=== PATIENT | female | born 1985 | race Caucasian/White ===

== ENCOUNTER 2021-08-27 12:31 | Emergency (ER) | payer OTHER ==
[~2021-08-27] VITALS: Ht 162.6 cm; Wt 122.9 kg
[2021-08-27] MEDS ORDERED: PRENATA CHEWAB1 EACH (13:08)
[2021-08-27] MEDS ORDERED: PEPCID AC20 MG (13:08)
[2021-08-27] MEDS ORDERED: LOSARTAN POTASS25 MG PO (13:09)
== END 2021-08-28 14:12 | disposition home or self-care (01) ==
LOC: ER 12:31
DX: O99.612 Diseases of the digestive system complicating pregnancy, second trimester (principal); K92.89 Other specified diseases of the digestive system; Z3A.19 19 weeks gestation of pregnancy; R10.84 Generalized abdominal pain
CPT/HCPCS: 72195; 74181

== ENCOUNTER 2021-12-18 11:23 | Outpatient (CLI) | payer OTHER ==
[~2021-12-18 11:23] MED LIST: LOSARTAN POTASS25 MG PO; PEPCID AC20 MG; PRENATA CHEWAB1 EACH
== END 2021-12-18 12:24 | disposition home or self-care (01) ==
LOC: NST 11:23
PROVIDERS: ATTEND Obstetrics & Gynecology Gynecology
DX: Z34.83 Encounter for supervision of other normal pregnancy, third trimester (principal)

== ENCOUNTER 2022-01-01 10:48 | Outpatient (CLI) | payer OTHER | END 2022-01-01 11:48 | disposition home or self-care (01) | LOC: NST 10:48 | PROVIDERS: ATTEND Specialist | DX: Z34.83 Encounter for supervision of other normal pregnancy, third trimester (principal) ==

== ENCOUNTER 2022-01-05 10:15 | Inpatient (IN) | payer OTHER ==
[~2022-01-05] VITALS: Ht 162.6 cm; Wt 137.0 kg
[2022-01-08] MEDS ORDERED: [UNRECOGNIZED DRUG - OTHER] PO (10:18)
[2022-01-14] MEDS ORDERED: LABETALOL 21 MG/1 ML PO (07:05)
[2022-01-14] MEDS ORDERED: FAMOTIDINE20 MG (13:27)
[2022-01-14] MEDS ORDERED: INTEGRA F CAPS1 EAC1 (13:27)
[2022-01-14] MEDS ORDERED: INTEGRA PLUS C1 EACH (13:27)
[2022-01-14] MEDS ORDERED: LABETALOL HCL200 MG (13:27)
== END 2022-01-16 12:44 | disposition home or self-care (01) | DRG 788 ==
LOC: EDSTATUS 01-08 08:45 → O/R 01-14 06:33 → OB/GYN 01-14 06:33 → SURG 01-14 08:45 → OB/GYN 01-14 08:45
PROVIDERS: ADMIT Obstetrics & Gynecology Maternal & Fetal Medicine; ATTEND Obstetrics & Gynecology Maternal & Fetal Medicine
PROC: 4A1HXCZ Monitoring of Products of Conception, Cardiac Rate, External Approach (ICD-10-PCS; 2022-01-14)
PROC: 10D00Z1 Extraction of Products of Conception, Low, Open Approach (ICD-10-PCS; principal; 2022-01-14 14:30)
DX: O34.211 Maternal care for low transverse scar from previous cesarean delivery (principal); Z3A.39 39 weeks gestation of pregnancy; Z37.0 Single live birth; Z20.822 Contact with and (suspected) exposure to COVID-19

== ENCOUNTER 2022-01-08 14:21 | Outpatient (CLI) | payer OTHER ==
[~2022-01-08 14:21] MED LIST changes: +[UNRECOGNIZED DRUG - OTHER] PO
== END 2022-01-08 15:35 | disposition home or self-care (01) ==
LOC: NST 14:21
PROVIDERS: ATTEND Obstetrics & Gynecology
DX: Z34.83 Encounter for supervision of other normal pregnancy, third trimester (principal)

== ENCOUNTER 2025-03-01 16:48 | Inpatient (IN) | payer OTHER ==
[~2025-03-01] VITALS: Ht 162.6 cm; Wt 95.3 kg
[~2025-03-01 16:48] MED LIST changes: +FAMOTIDINE20 MG; +INTEGRA F CAPS1 EAC1; +INTEGRA PLUS C1 EACH; +INTESTINEX680 M1 PO; +LABETALOL 21 MG/1 ML PO; +LABETALOL HCL200 MG; +PEPCID AC20 MG PO
[2025-03-01] MEDS ORDERED: OMEPRAZOLE MAGN20 MG PO (16:56)
[2025-03-01] MEDS ORDERED: ONDANSETRON HCL 2 MG/ML VIAL IV ONE (17:30)
[2025-03-01] MEDS ORDERED: FAMOtidine 10 MG/ML (4ML VIAL) IV ONE (17:30)
[2025-03-01] MEDS ORDERED: MORPHINE SULFATE 4 MG/ML CARTRIDGE IV PRN (17:30)
[2025-03-01] MEDS ORDERED: 0.9 % SODIUM CHLORIDE 1,000 ML IV ONE (17:30)
[2025-03-01 17:47] LABS: BASO % 0.1 % (0.1-1.2); EOS # 0.07 (0.04-0.54); EOS % 0.9 % (0.7-7.0); LYMPH # 0.81 (1.18-3.74); LYMPH % 10.1 % (19.3-53.1); MEAN PLATELET VOLUME 9.50 fl (9.4-12.4); MONO # 0.58 (0.24-0.82); MONO % 7.2 % (4.7-12.5); NEUT # 6.56 (1.56-6.13); NEUT % 81.5 % (34.0-71.1); RED CELL DISTRIBUTION WIDTH 14.1 % (11.6-14.4)
[2025-03-01 18:06] LABS: INR 1.09
[2025-03-01 18:37] LABS: ALT/SGPT 13 U/L (12-78); AST/SGOT 9 U/L (15-37); BILIRUBIN TOTAL 0.69 mg/dL (0.3-1.2); BILIRUBIN,CONJUGATED 0.17 mg/dL (0.0-0.2); BUN CREA RATIO 19 (7.0-25.0); CREATININE SERUM 0.70 mg/dL (0.55-1.02); GFR 93.65; GLOBULINA 5.8 G/DL (2.4-3.5); GLUCOSE FASTING 102 mg/dL (65-100); OSMOLALITY SERUM 278 MOSM/KG (275-295)
[2025-03-01 18:49] LABS: HCG QUANTITATIVE < 1 mUI/mL (1-3)
[2025-03-02] MEDS ORDERED: CIPROFLOXACIN IN 5 % DEXTROSE 200 ML IV SCH (00:31)
[2025-03-02 04:49] LABS: URINE APPEARANCE Clear; URINE BILIRRUBIN Negative (NEGATIVE); URINE BLOOD Large; URINE COLOR Yellow; URINE GLUCOSE Negative (NEGATIVE); URINE LEUKOCYTE Negative; URINE NITRATE Negative; URINE UROBILINOGEN 1.0 E.U./dl
[2025-03-02 04:53] LABS: URINE BACTERIA 809.9 uL (0.0-1933); URINE EPITHELIAL CELLS 15.0 uL (0.0-38.8); URINE RBC 679.7 uL (0.0-20.8); URINE WBC 8.9 uL (0.0-23.2)
[2025-03-02 05:14] LABS: URINE CAST 0.29 uL (0.0-1.40); URINE KETONE 40 (NEGATIVE); URINE PROTEIN 100 (NEGATIVE)
[2025-03-02] MEDS ORDERED: FAMOTIDINE/PF 20 MG in 0.9 % SODIUM CHLORIDE 8 ML IV PUSH SCH (10:45)
[2025-03-02] MEDS ORDERED: ONDANSETRON HCL 4 MG in 0.9 % SODIUM CHLORIDE 50 ML IV PRN (10:45)
[2025-03-02] MEDS ORDERED: RINGERS SOLUTION,LACTATED 1,000 ML IV SCH (10:45)
[2025-03-02] MEDS ORDERED: ENOXAPARIN SODIUM 40 MG/0.4 ML SYRINGE SUBCUTANEO SCH (11:09)
[2025-03-02 14:11] VITALS: BP 135/87
[2025-03-02 20:58] VITALS: BP 150/105; O2SAT 98
[2025-03-03 03:15] VITALS: BP 158/88; O2SAT 98
[2025-03-03 09:00] VITALS: BP 140/92; O2SAT 99
[2025-03-03 17:01] VITALS: BP 153/95
[2025-03-03] MEDS ORDERED: hydrALAZINE HCL 20 MG VIAL IV PRN (22:00)
[2025-03-03] MEDS ORDERED: KETOROLAC TROMETHAMINE 30 MG VIAL IV PRN (22:00)
[2025-03-04 03:29] VITALS: BP 153/85; O2SAT 96
[2025-03-04 08:04] LABS: BASO % 0.1 % (0.1-1.2); EOS # 0.12 (0.04-0.54); EOS % 1.8 % (0.7-7.0); LYMPH # 1.29 (1.18-3.74); LYMPH % 18.9 % (19.3-53.1); MEAN PLATELET VOLUME 9.90 fl (9.4-12.4); MONO # 0.64 (0.24-0.82); MONO % 9.4 % (4.7-12.5); NEUT # 4.73 (1.56-6.13); NEUT % 69.4 % (34.0-71.1); RED CELL DISTRIBUTION WIDTH 14.1 % (11.6-14.4)
[2025-03-04 08:35] LABS: ALT/SGPT 8.0 U/L (12-78); AST/SGOT 8.0 U/L (15-37); BILIRUBIN TOTAL 0.58 mg/dL (0.3-1.2); BUN CREA RATIO 23.0 (7.0-25.0); CREATININE SERUM 0.39 mg/dL (0.55-1.02); GFR 183.93; GLOBULINA 3.9 G/DL (2.4-3.5); GLUCOSE FASTING 71.0 mg/dL (65-100); OSMOLALITY SERUM 277.0 MOSM/KG (275-295)
[2025-03-04 09:10] LABS: ERYTHROCYTE SEDIMENTATION RATE > 130 mm/hr (0-20)
[2025-03-04 11:15] VITALS: BP 138/93; O2SAT 98
[2025-03-04] MEDS ORDERED: LORazepam 2 MG/ML VIAL IV PRN (14:15)
[2025-03-04] MEDS ORDERED: SOD FERRIC GLUC COMPLX/SUCROSE 62.5 MG in 0.9 % SODIUM CHLORIDE 50 ML IV SCH (17:00)
[2025-03-04 18:10] VITALS: BP 158/100
[2025-03-04 19:37] LABS: BASO % 0.2 % (0.1-1.2); EOS # 0.10 (0.04-0.54); EOS % 1.2 % (0.7-7.0); LYMPH # 1.16 (1.18-3.74); LYMPH % 13.5 % (19.3-53.1); MEAN PLATELET VOLUME 10.30 fl (9.4-12.4); MONO # 0.62 (0.24-0.82); MONO % 7.2 % (4.7-12.5); NEUT # 6.66 (1.56-6.13); NEUT % 77.7 % (34.0-71.1); RED CELL DISTRIBUTION WIDTH 14.1 % (11.6-14.4)
[2025-03-05 01:12] VITALS: BP 153/84; O2SAT 98
[2025-03-05 09:34] VITALS: BP 156/98; O2SAT 98
[2025-03-05 22:08] VITALS: BP 159/102
[2025-03-06 03:36] VITALS: BP 151/95; O2SAT 97
[2025-03-06 09:48] VITALS: BP 156/106; O2SAT 96
[2025-03-06] MEDS ORDERED: PANTOPRAZOLE SODIUM 40 MG/VIAL VIAL IV SCH (16:15)
[2025-03-06] MEDS ORDERED: PANTOPRAZOLE SODIUM 80 MG in 0.9 % SODIUM CHLORIDE 100 ML IV SCH (16:45)
[2025-03-06] MEDS ORDERED: DIATRIZOATE MEGLUMINE, SODIUM 30 ML BOTTLE PO STA (17:35)
[2025-03-06 18:38] VITALS: BP 147/90; O2SAT 99
[2025-03-07 02:15] VITALS: BP 150/102; O2SAT 97
[2025-03-07 08:32] VITALS: BP 145/99; O2SAT 98
[2025-03-07 15:09] LABS: BUN CREA RATIO 25.0 (7.0-25.0); CHOL HDL RATIO 3.9 (0-5.0); CREATININE SERUM 0.32 mg/dL (0.55-1.02); GFR 231.1; GLUCOSE FASTING 76.0 mg/dL (65-100); HDL 32.0 mg/dl (40-60); LDL 79.0 mg/dl (0-130); OSMOLALITY SERUM 271.0 MOSM/KG (275-295); VLDL 14.0 (0-39)
[2025-03-07] MEDS ORDERED: AA 2.36%/D6.8W/FAT/E-LYTES NO9 1,440 ML IV SCH (17:00)
[2025-03-07] MEDS ORDERED: HYOSCYAMINE SULFATE 0.125 MG TAB.SUBL SL SCH (17:00)
[2025-03-07 17:37] VITALS: BP 157/100; O2SAT 99
[2025-03-08 03:25] VITALS: BP 148/90; O2SAT 95
[2025-03-08] MEDS ORDERED: MEROPENEM 500 MG/VIAL VIAL IV STA (09:14)
[2025-03-08] MEDS ORDERED: LINEZOLID IN DEXTROSE 5% 600 MG/300 ML PIGGYBAG IV STA (09:14)
[2025-03-08] MEDS ORDERED: FLUCONAZOLE IN NACL,ISO-OSM 200 MG/100 ML PIGGYBAG IV STA (09:15)
[2025-03-08] MEDS ORDERED: POTASSIUM CHLORIDE IN WATER 100 ML IV NR (11:00)
[2025-03-08] MEDS ORDERED: MEROPENEM 500 MG/VIAL VIAL IV SCH (14:00)
[2025-03-08 17:27] VITALS: BP 161/107; O2SAT 100
[2025-03-08] MEDS ORDERED: LINEZOLID IN DEXTROSE 5% 600 MG/300 ML PIGGYBAG IV SCH (21:00)
[2025-03-09 03:18] VITALS: BP 131/90; O2SAT 95
[2025-03-09 06:20] LABS: BASO % 0.2 % (0.1-1.2); EOS # 0.01 (0.04-0.54); EOS % 0.2 % (0.7-7.0); LYMPH # 0.73 (1.18-3.74); LYMPH % 12.4 % (19.3-53.1); MEAN PLATELET VOLUME 10.30 fl (9.4-12.4); MONO # 0.48 (0.24-0.82); MONO % 8.1 % (4.7-12.5); NEUT # 4.65 (1.56-6.13); NEUT % 78.8 % (34.0-71.1); RED CELL DISTRIBUTION WIDTH 14.5 % (11.6-14.4)
[2025-03-09 06:45] LABS: ALT/SGPT 17.0 U/L (12-78); AST/SGOT 30.0 U/L (15-37); BILIRUBIN TOTAL 0.31 mg/dL (0.3-1.2); BUN CREA RATIO 12.0 (7.0-25.0); CREATININE SERUM 0.5 mg/dL (0.55-1.02); GFR 138.08; GLOBULINA 4.0 G/DL (2.4-3.5); GLUCOSE FASTING 107.0 mg/dL (65-100); OSMOLALITY SERUM 270.0 MOSM/KG (275-295)
[2025-03-09 06:52] LABS: ERYTHROCYTE SEDIMENTATION RATE 109 mm/hr (0-20)
[2025-03-09] MEDS ORDERED: FLUCONAZOLE IN NACL,ISO-OSM 200 MG/100 ML PIGGYBAG IV SCH (09:00)
[2025-03-09 09:56] VITALS: BP 127/89; O2SAT 97
[2025-03-09 18:30] VITALS: BP 144/105; O2SAT 99
[2025-03-10 02:12] VITALS: BP 146/90; O2SAT 97
[2025-03-10 08:29] VITALS: BP 136/91; O2SAT 95
[2025-03-10] MEDS ORDERED: FAMOTIDINE/PF 20 MG/2 ML VIAL ONE (13:43)
[2025-03-10 18:40] VITALS: BP 136/94
[2025-03-10 18:45] VITALS: BP 136/94
[2025-03-11 02:04] VITALS: BP 150/90; O2SAT 98
[2025-03-11 09:53] VITALS: BP 148/103; O2SAT 95
[2025-03-11 18:29] VITALS: BP 139/98
[2025-03-11 18:32] VITALS: BP 139/98
[2025-03-11] MEDS ORDERED: MORPHINE SULFATE 4 MG/ML CARTRIDGE IV PRN (22:30)
[2025-03-12 03:10] VITALS: BP 132/84; O2SAT 95
[2025-03-12 06:13] LABS: BASO % 0.3 % (0.1-1.2); EOS # 0.18 (0.04-0.54); EOS % 2.5 % (0.7-7.0); LYMPH # 1.50 (1.18-3.74); LYMPH % 20.6 % (19.3-53.1); MEAN PLATELET VOLUME 10.70 fl (9.4-12.4); MONO # 0.73 (0.24-0.82); MONO % 10.0 % (4.7-12.5); NEUT # 4.81 (1.56-6.13); NEUT % 66.2 % (34.0-71.1); RED CELL DISTRIBUTION WIDTH 15.1 % (11.6-14.4)
[2025-03-12 06:46] LABS: ALT/SGPT 14.0 U/L (12-78); AST/SGOT 18.0 U/L (15-37); BILIRUBIN TOTAL 0.24 mg/dL (0.3-1.2); BUN CREA RATIO 8.0 (7.0-25.0); CREATININE SERUM 0.4 mg/dL (0.55-1.02); GFR 178.63; GLOBULINA 4.3 G/DL (2.4-3.5); GLUCOSE FASTING 91.0 mg/dL (65-100); OSMOLALITY SERUM 277.0 MOSM/KG (275-295)
[2025-03-12 09:24] VITALS: BP 153/105; O2SAT 97
[2025-03-12] MEDS ORDERED: ONDANSETRON HCL 4 MG in DEXTROSE 5 % IN WATER 50 ML IV SCH (17:00)
[2025-03-12 17:23] LABS: INR 1.09
[2025-03-12 17:35] LABS: ALT/SGPT 16 U/L (12-78); AST/SGOT 17 U/L (15-37); BILIRUBIN TOTAL 0.29 mg/dL (0.3-1.2); BILIRUBIN,CONJUGATED < 0.10 mg/dL (0.0-0.2); CHOL HDL RATIO 4.3 (0-5.0); HDL 22 mg/dl (40-60); LDL 47 mg/dl (0-130); VLDL 24 (0-39)
[2025-03-12 18:40] VITALS: BP 151/94
[2025-03-13 03:03] VITALS: BP 131/85; O2SAT 96
[2025-03-13] MEDS ORDERED: DIATRIZOATE MEGLUMINE, SODIUM 30 ML BOTTLE PO NR (09:15)
[2025-03-13 09:38] VITALS: BP 135/86; O2SAT 95
[2025-03-13] MEDS ORDERED: ONDANSETRON HCL 2 MG/ML VIAL ONE (16:29)
[2025-03-13 18:58] VITALS: BP 160/117; O2SAT 97
[2025-03-14 02:59] VITALS: BP 130/84; O2SAT 98
[2025-03-14] MEDS ORDERED: ONDANSETRON HCL 2 MG/ML VIAL ONE (16:27)
[2025-03-14 17:00] VITALS: BP 146/108; O2SAT 98
[2025-03-14] MEDS ORDERED: AA 3.31 %/D9.8W/FAT/E-LYTES 10 2,053 ML IV SCH (17:00)
[2025-03-14] MEDS ORDERED: fentaNYL CITRATE 50 MCG/ML AMPUL IV PUSH ONE ×2 (18:00→19:15)
[2025-03-14] MEDS ORDERED: MIDAZOLAM HCL 2 MG/2 ML VIAL IV PUSH ONE (18:00)
[2025-03-15 02:03] VITALS: BP 135/92; O2SAT 96
[2025-03-15] MEDS ORDERED: ONDANSETRON HCL 2 MG/ML VIAL ONE ×2 (07:57→15:59)
[2025-03-15 09:21] VITALS: BP 172/98
[2025-03-15] MEDS ORDERED: SUCRALFATE 1 G TABLET PO NR (10:30)
[2025-03-15] MEDS ORDERED: PANTOPRAZOLE SODIUM 40 MG/VIAL VIAL IV NR (10:30)
[2025-03-15] MEDS ORDERED: SIMETHICONE 125 MG CAPSULE PO SCH (17:00)
[2025-03-15] MEDS ORDERED: SUCRALFATE 1 G TABLET PO SCH (17:00)
[2025-03-15] MEDS ORDERED: PANTOPRAZOLE SODIUM 40 MG/VIAL VIAL IV SCH (21:00)
[2025-03-15 21:26] VITALS: BP 131/89
[2025-03-15] MEDS ORDERED: SUGAMMADEX SODIUM 200 MG/2 ML VIAL IV ONE (21:42)
[2025-03-15 22:37] LABS: BASO % 0.6 % (0.1-1.2); EOS # 0.30 (0.04-0.54); EOS % 3.9 % (0.7-7.0); LYMPH # 2.12 (1.18-3.74); LYMPH % 27.5 % (19.3-53.1); MEAN PLATELET VOLUME 9.50 fl (9.4-12.4); MONO # 0.90 (0.24-0.82); MONO % 11.7 % (4.7-12.5); NEUT # 4.20 (1.56-6.13); NEUT % 54.4 % (34.0-71.1); RED CELL DISTRIBUTION WIDTH 15.1 % (11.6-14.4)
[2025-03-15] MEDS ORDERED: hydrALAZINE HCL 20 MG VIAL IV ONE (23:30)
[2025-03-16 06:16] LABS: BASO % 0.6 % (0.1-1.2); EOS # 0.02 (0.04-0.54); EOS % 0.1 % (0.7-7.0); LYMPH # 0.72 (1.18-3.74); LYMPH % 4.0 % (19.3-53.1); MEAN PLATELET VOLUME 9.60 fl (9.4-12.4); MONO # 1.38 (0.24-0.82); MONO % 7.6 % (4.7-12.5); NEUT # 15.81 (1.56-6.13); NEUT % 86.9 % (34.0-71.1); RED CELL DISTRIBUTION WIDTH 15.1 % (11.6-14.4)
[2025-03-16 06:51] LABS: ERYTHROCYTE SEDIMENTATION RATE > 130 mm/hr (0-20); INR 1.08
[2025-03-16 07:02] LABS: ALT/SGPT 20.0 U/L (12-78); AST/SGOT 29.0 U/L (15-37); BILIRUBIN TOTAL 0.64 mg/dL (0.3-1.2); BUN CREA RATIO 16.0 (7.0-25.0); CREATININE SERUM 0.51 mg/dL (0.55-1.02); GFR 134.96; GLOBULINA 4.5 G/DL (2.4-3.5); GLUCOSE FASTING 167.0 mg/dL (65-100); OSMOLALITY SERUM 269.0 MOSM/KG (275-295)
[2025-03-16] MEDS ORDERED: PANTOPRAZOLE SODIUM 40 MG/VIAL VIAL ONE (08:28)
[2025-03-16] MEDS ORDERED: HYOSCYAMINE SULFATE 0.125 MG TAB.SUBL ONE (08:28)
[2025-03-16] MEDS ORDERED: ONDANSETRON HCL 2 MG/ML VIAL ONE (08:49)
[2025-03-16] MEDS ORDERED: MORPHINE SULFATE 4 MG/ML CARTRIDGE IV ONE (09:30)
[2025-03-16] MEDS ORDERED: LABETALOL HCL 100 MG/20 ML ML IV PRN (11:15)
[2025-03-16] MEDS ORDERED: LABETALOL HCL 100 MG/20 ML ML ONE ×5 (11:20→11:46)
[2025-03-16 16:30] VITALS: BP 130/86; O2SAT 96
[2025-03-16 16:57] VITALS: O2SAT 97
[2025-03-16] MEDS ORDERED: AA 5 %/CALCIUM/LYTES/DEXT 20 % 2,000 ML CENTRAL SCH ×2 (17:00)
[2025-03-16] MEDS ORDERED: ENOXAPARIN SODIUM 40 MG/0.4 ML SYRINGE SUBCUTANEO SCH (17:00)
[2025-03-16] MEDS ORDERED: FAT EMULSIONS 250 ML IV SCH (21:00)
[2025-03-16 21:09] VITALS: O2SAT 99
[2025-03-17] VITALS (9 sets, daily range): BP systolic 136–142; BP diastolic 76–98; O2SAT 97–99
[2025-03-17] MEDS ORDERED: ENOXAPARIN SODIUM 40 MG/0.4 ML SYRINGE SUBCUTANEO SCH ×2 (09:00→17:00)
[2025-03-17] MEDS ORDERED: ENALAPRILAT DIHYDRATE 1.25 MG/ML VIAL IV ONE (19:30)
[2025-03-18] VITALS (9 sets, daily range): BP systolic 123–131; BP diastolic 82–88; O2SAT 90–100
[2025-03-18 08:41] LABS: BUN CREA RATIO 30.0 (7.0-25.0); CREATININE SERUM 0.33 mg/dL (0.55-1.02); FREE TRIODOTIRONINE 1.81 pg/ml (2.18-3.98); GLUCOSE FASTING 111.0 mg/dL (65-100); OSMOLALITY SERUM 275.0 MOSM/KG (275-295); T4 TOTAL 8.0 UG/DL (4.8-13.9)
[2025-03-18 08:43] LABS: TSH 5.54 uIU/mL (0.358-3.74)
[2025-03-18] MEDS ORDERED: MORPHINE SULFATE 4 MG/ML VIAL IV PRN (12:56)
[2025-03-18 13:01] LABS: BASO % 0.3 % (0.1-1.2); EOS # 0.33 (0.04-0.54); EOS % 2.7 % (0.7-7.0); LYMPH # 1.21 (1.18-3.74); LYMPH % 9.9 % (19.3-53.1); MEAN PLATELET VOLUME 9.50 fl (9.4-12.4); MONO # 1.30 (0.24-0.82); MONO % 10.6 % (4.7-12.5); NEUT # 9.20 (1.56-6.13); NEUT % 75.3 % (34.0-71.1); RED CELL DISTRIBUTION WIDTH 15.4 % (11.6-14.4)
[2025-03-19] VITALS (9 sets, daily range): BP systolic 133–146; BP diastolic 77–92; O2SAT 97–100
[2025-03-19 06:16] LABS: BASO % 0.4 % (0.1-1.2); EOS # 0.35 (0.04-0.54); EOS % 4.2 % (0.7-7.0); LYMPH # 1.11 (1.18-3.74); LYMPH % 13.3 % (19.3-53.1); MEAN PLATELET VOLUME 9.80 fl (9.4-12.4); MONO # 0.76 (0.24-0.82); MONO % 9.1 % (4.7-12.5); NEUT # 5.97 (1.56-6.13); NEUT % 71.8 % (34.0-71.1); RED CELL DISTRIBUTION WIDTH 15.3 % (11.6-14.4)
[2025-03-19 06:44] LABS: INR 1.05
[2025-03-19 07:25] LABS: ALT/SGPT 11.0 U/L (12-78); AST/SGOT 10.0 U/L (15-37); BILIRUBIN TOTAL 0.64 mg/dL (0.3-1.2); BILIRUBIN,CONJUGATED 0.18 mg/dL (0.0-0.2); BUN CREA RATIO 26.0 (7.0-25.0); CHOL HDL RATIO 7.0 (0-5.0); CREATININE SERUM 0.38 mg/dL (0.55-1.02); GFR 189.53; GLOBULINA 3.9 G/DL (2.4-3.5); GLUCOSE FASTING 115.0 mg/dL (65-100); LDL 51.0 mg/dl (0-130); OSMOLALITY SERUM 276.0 MOSM/KG (275-295); VLDL 27.0 (0-39)
[2025-03-19 07:27] LABS: HDL 13.0 mg/dl (40-60)
[2025-03-19 10:14] LABS: UREA CLEARANCE 70.5 ML/MIN
[2025-03-20 00:50] VITALS: BP 131/78; O2SAT 98
[2025-03-20 08:00] VITALS: BP 145/90; O2SAT 98
[2025-03-20 14:20] VITALS: BP 159/106
[2025-03-20 16:09] VITALS: O2SAT 98
[2025-03-20 16:29] VITALS: BP 137/89; O2SAT 96
[2025-03-20 17:12] LABS: BASO % 0.1 % (0.1-1.2); EOS # 0.23 (0.04-0.54); EOS % 2.9 % (0.7-7.0); LYMPH # 0.91 (1.18-3.74); LYMPH % 11.3 % (19.3-53.1); MEAN PLATELET VOLUME 9.60 fl (9.4-12.4); MONO # 0.75 (0.24-0.82); MONO % 9.3 % (4.7-12.5); NEUT # 6.04 (1.56-6.13); NEUT % 75.3 % (34.0-71.1); RED CELL DISTRIBUTION WIDTH 14.8 % (11.6-14.4)
[2025-03-21] VITALS: BP 134/89; O2SAT 96
[2025-03-21 00:12] VITALS: O2SAT 98
[2025-03-21 08:00] VITALS: BP 145/99; O2SAT 97
[2025-03-21 11:51] VITALS: O2SAT 100
[2025-03-21 16:00] VITALS: BP 137/98; O2SAT 96
[2025-03-22] VITALS (9 sets, daily range): BP systolic 131–149; BP diastolic 86–107; O2SAT 76–98
[2025-03-22] MEDS ORDERED: METOPROLOL SUCCINATE 25 MG TAB.SR.24H PO STA (22:30)
[2025-03-22] MEDS ORDERED: METOPROLOL SUCCINATE 25 MG TAB.SR.24H PO SCH (22:31)
[2025-03-22] MEDS ORDERED: ACETAMINOPHEN 500 MG GEL..CAP PO STA (22:32)
[2025-03-22] MEDS ORDERED: ACETAMINOPHEN 500 MG GEL..CAP PO PRN (22:45)
[2025-03-23 00:35] VITALS: BP 123/77; O2SAT 96
[2025-03-23] MEDS ORDERED: METOPROLOL SUCCINATE 25 MG TAB.SR.24H PO SCH (09:00)
[2025-03-23 10:29] VITALS: O2SAT 90
[2025-03-23 16:12] VITALS: BP 130/83; O2SAT 97
[2025-03-24] VITALS: BP 129/82; O2SAT 97
[2025-03-24 09:24] LABS: BASO % 0.5 % (0.1-1.2); EOS # 0.26 (0.04-0.54); EOS % 4.0 % (0.7-7.0); LYMPH # 1.06 (1.18-3.74); LYMPH % 16.5 % (19.3-53.1); MEAN PLATELET VOLUME 9.90 fl (9.4-12.4); MONO # 0.76 (0.24-0.82); MONO % 11.8 % (4.7-12.5); NEUT # 4.25 (1.56-6.13); NEUT % 66.3 % (34.0-71.1); RED CELL DISTRIBUTION WIDTH 15.3 % (11.6-14.4)
[2025-03-24 09:29] LABS: ERYTHROCYTE SEDIMENTATION RATE > 130 mm/hr (0-20)
[2025-03-24 10:06] LABS: ALT/SGPT 9.0 U/L (12-78); AST/SGOT 12.0 U/L (15-37); BILIRUBIN TOTAL 0.55 mg/dL (0.3-1.2); BUN CREA RATIO 32.0 (7.0-25.0); CREATININE SERUM 0.37 mg/dL (0.55-1.02); GFR 195.45; GLOBULINA 4.2 G/DL (2.4-3.5); GLUCOSE FASTING 106.0 mg/dL (65-100); OSMOLALITY SERUM 270.0 MOSM/KG (275-295)
[2025-03-24 16:35] VITALS: BP 126/85; O2SAT 96
[2025-03-25 00:15] VITALS: BP 129/82; O2SAT 97
[2025-03-25 08:00] VITALS: BP 124/82; O2SAT 97
[2025-03-25 17:21] VITALS: BP 117/80; O2SAT 97
[2025-03-26 02:41] VITALS: BP 122/85; O2SAT 99
[2025-03-26 08:00] VITALS: BP 107/72; O2SAT 98
[2025-03-26 09:05] LABS: T4 TOTAL 7.05 UG/DL (4.8-13.9)
[2025-03-26 09:06] LABS: TSH 5.12 uIU/mL (0.358-3.74)
[2025-03-26 15:00] VITALS: BP 1280/80; O2SAT 99
[2025-03-26] MEDS ORDERED: fentaNYL CITRATE 50 MCG/ML AMPUL IV PUSH ONE ×2 (19:45→20:45)
[2025-03-26] MEDS ORDERED: MIDAZOLAM HCL 2 MG/2 ML VIAL IV PUSH ONE (19:45)
[2025-03-27 00:57] VITALS: BP 104/69; O2SAT 100
[2025-03-27 08:32] VITALS: BP 105/69; O2SAT 97
[2025-03-27] MEDS ORDERED: FLUCONAZOLE IN NACL,ISO-OSM 100 ML IV SCH (09:17)
[2025-03-27 16:00] VITALS: BP 112/72; O2SAT 96
[2025-03-28] VITALS: BP 96/64; O2SAT 98
[2025-03-28 10:22] VITALS: BP 112/78; O2SAT 97
[2025-03-28 15:00] VITALS: BP 109/74; O2SAT 100
[2025-03-28] MEDS ORDERED: TOPROL XL25 M1 PO (19:15)
[2025-03-28] MEDS ORDERED: CARAFATE1 GM PO (19:15)
[2025-03-28] MEDS ORDERED: INTESTINEX680 M2 PO (19:15)
[2025-03-28] MEDS ORDERED: SIMETHICONE125 M1 PO (19:15)
== END 2025-03-28 20:15 | disposition home or self-care (01) | DRG 329 ==
LOC: ER 16:49 → MEDI 03-02 10:47 → SURG 03-16 10:09 → SURH 03-16 22:33
PROVIDERS: General Practice; Internal Medicine; Internal Medicine Endocrinology, Diabetes & Metabolism; Internal Medicine Geriatric Medicine; Surgery; ADMIT Internal Medicine; ATTEND Internal Medicine
PROC: BW21YZZ Computerized Tomography (CT Scan) of Abdomen and Pelvis using Other Contrast (ICD-10-PCS; 2025-03-01)
PROC: 02HV33Z Insertion of Infusion Device into Superior Vena Cava, Percutaneous Approach (ICD-10-PCS; 2025-03-05)
PROC: BW21YZZ Computerized Tomography (CT Scan) of Abdomen and Pelvis using Other Contrast (ICD-10-PCS; 2025-03-06)
PROC: B24BYZZ Ultrasonography of Heart with Aorta using Other Contrast (ICD-10-PCS; 2025-03-06)
PROC: 0W9J3ZZ Drainage of Pelvic Cavity, Percutaneous Approach (ICD-10-PCS; 2025-03-08)
PROC: 0DB84ZZ Excision of Small Intestine, Percutaneous Endoscopic Approach (ICD-10-PCS; 2025-03-15)
PROC: 0DNW4ZZ Release Peritoneum, Percutaneous Endoscopic Approach (ICD-10-PCS; 2025-03-15)
PROC: 0D1B4Z4 Bypass Ileum to Cutaneous, Percutaneous Endoscopic Approach (ICD-10-PCS; principal; 2025-03-15 19:00)
PROC: 4A12X4Z Monitoring of Cardiac Electrical Activity, External Approach (ICD-10-PCS; 2025-03-16)
PROC: BW21YZZ Computerized Tomography (CT Scan) of Abdomen and Pelvis using Other Contrast (ICD-10-PCS; 2025-03-23)
DX: K57.12 Diverticulitis of small intestine without perforation or abscess without bleeding (principal); A41.9 Sepsis, unspecified organism; K65.1 Peritoneal abscess; K56.609 Unspecified intestinal obstruction, unspecified as to partial versus complete obstruction; K63.2 Fistula of intestine; L02.211 Cutaneous abscess of abdominal wall; E66.9 Obesity, unspecified; K66.0 Peritoneal adhesions (postprocedural) (postinfection); D64.9 Anemia, unspecified